=== PATIENT | female | born 1995 | race Two or more races ===

== ENCOUNTER 2021-08-19 19:42 | Emergency (ER) | payer MEDICAID, OTHER ==
[~2021-08-19] VITALS: Ht 162.6 cm; Wt 79.4 kg
[2021-08-19 20:03] VITALS: BP 136/86
== END 2021-08-19 23:35 | disposition left against medical advice (07) ==
LOC: ER 19:44
DX: M79.10 Myalgia, unspecified site (principal); R51.9 Headache, unspecified; R68.83 Chills (without fever); Z20.822 Contact with and (suspected) exposure to COVID-19; Z53.21 Procedure and treatment not carried out due to patient leaving prior to being seen by health care provider
CPT/HCPCS: 36415; 87426